=== PATIENT | male | born 1940 | race Caucasian/White ===

== ENCOUNTER 2017-02-01 08:06 | Outpatient (CLI) | payer MEDICARE, BC ==
[~2017-02-01] VITALS: Ht 180.3 cm; Wt 118.2 kg
--- NOTE | ~2017-02-01 | HEMODYNAMI ---
PATIENT:NYLA RODRIGUEZ MEDICAL RECORD: [id number] : 38 LOCATION:[facility] ADMISSION DATE: 02/01/17 Generatedon:02/01/201710:47 Patient name: NYLA RODRIGUEZ Patient #: [id number] SSN: : 1940 Date of study: 02/01/2017 Page: Of Hemodynamic Procedure Report Patient Data Patient Demographics Procedure consent was obtained First Name: NYLA Gender: Male Last Name: MICHAEL : 1940 [facility] Initial: L Age: 76 year(s) Patient #: [id number] Race: Unknown Additional ID: [id number] Contact details [address]: [address] [place] [address] State: [place] City: [place] Zip code: [address] Past Medical History Allergies Allergen Reaction Date Comments Reported Other allergy 02/01/2017 tetanus Admission Admission Data Admission Date: 02/01/2017 Admission Time: 8:06 Procedure Procedure Types Cath Procedure Diagnostic Procedure Cardioversion Procedure Description Procedure Date Procedure Date: 02/01/2017 Procedure Start Time: 10:35 Procedure End Time: 10:41 Procedure Staff Name Function Hebert Perry MD Performing Physician Inocencio Mathias RT Scrub Abdirashid Luna RN Nurse Angel Del Rosario RT Monitor Procedure Data Cath Procedure Fluoroscopy Diagnostic fluoroscopy Total fluoroscopy Time: 0 time: 0 min min Diagnostic fluoroscopy Total fluoroscopy dose: 0 dose: 0 mGy mGy Contrast Material Contrast Material Type Amount (ml) Isovue 300 0 Estimated blood loss: 0 ml Procedure Complications No complications Hemodynamics Rest Heart Rate: 102 (bpm) Snapshots Pre Cath Intra NCS Post Cath Vital Signs Time Heart Resp SPO2 NIBP Rhythm Pain Sedation Rate (ipm) (%) (mmHg) Status Level (bpm) 10:34:14 100 14 100 No Cuff NSR 0 (11) 10(A) , No pain 10:38:30 52 13 96/70(76) NSR 0 (11) 10(A) , No pain 10:42:24 53 14 100 100/63(83) NSR 0 (11) 10(A) , No pain 10:44:25 53 11 99 99/67(76) NSR 0 (11) 10(A) , No pain Procedure Log Time Note 10:12:54 Abdirashid Luna RN sent for patient. Start room use. 10:20:38 Informed consent obtained and on chart 10:20:55 Time tracking: Regular hours 10:20:59 Plan of Care:Hemodynamics will remain stable., Cardiac rhythm will remain stable., Comfort level will be maintained., Respiratory function will remain adequate., Patient/ family verbilizes understanding of procedure., Procedure tolerated without complication., Recovers from procedure without complications.. 10:21:23 H&P Date Dictated: 01/23/2017 Within 30 days and on chart., H&P Addendum completed by physician on day of procedure. (MUST COMPLETE FOR ALL OUTPATIENTS). 10:27:38 Patient received from Pre/Post Procedure Room to CCL 2 Alert and oriented. Tansferred to table in Supine position. 10:27:39 Warm blankets applied, and tor hugger turned on for patient comfort. 10:27:39 Correct patient and procedure confirmed by team. 10:27:40 ECG and BP/O2 sat monitors applied to patient. 10:27:42 Pre-procedure instructions explained to patient. 10:27:42 Pre-op teaching completed and patient verbalized understanding. 10:27:45 Family in waiting room. 10:27:46 Patient NPO since Midnight. 10:33:25 Vital chart was started 10:33:26 Baseline sample Acquired. 10:33:32 Rhythm: atrial fibrillation 10:33:34 Full Disclosure recording started 10:33:53 Patient allergic to Other allergytetanus 10:33:56 Is the patient allergic to Iodine/contrast media? No. 10:34:39 Is patient on blood thinner?Yes 10:34:42 ACC The patient was administered the following blood thiners within the last 24 hours: Xarelto 10:34:45 Previous problem with sedation/anesthesia? No ? 10:34:46 Snore? Yes 10:34:47 Sleep apnea? No 10:34:48 Deviated septum? No 10:34:49 Opens mouth fully? Yes 10:34:49 Sticks out tongue? Yes 10:34:52 Airway obstruction? No ? 10:35:00 Quick Combo opened to sterile field. 10:35:11 Dentures? Yes out 10:35:24 IV patent on arrival in left forearm with 0.9% NaCl at O. 10:35:28 Lab results completed and on chart. 10:35:30 Physician arrived 10:35:31 --------ALL STOP TIME OUT------ 10:35:31 Final Timeout: patient, procedure, and site verified with staff and physician. All members of the team are in agreement. 10:35:36 Physical assessment completed. ASA score P 2 - A patient with mild systemic disease as per Hebert Perry MD. 10:35:40 Sedation plan: TIVA Propofol 10:35:54 DR. Emmanuel present and monitoring patient for TIVA. 10:35:57 Procedure started. 10:35:58 Quick combo pads placed on patients chest and back. 10:37:20 Defibrillator synced and charged to 200 Joules. 10:37:27 Shock delivered. 10:37:41 Patient cardioverted to sinus rhythm . 10:38:31 Procedure ended.(Physican Out) 10:38:39 Fluoroscopy time 00.00 minutes. 10:38:40 Flurop Dose total: 0 10:38:40 Fluoroscopy dose: 0 mGy 10:38:42 Contrast amount:Isovue 300 0ml. 10:38:45 Sharps counted by scrub and verified by R.N. 10:38:52 Post-procedure physical assessment completed. ASA score P 2 - A patient with mild systemic disease as per Hebert Perry MD. 10:38:54 Post procedure rhythm: sinus rhythm 10:38:56 Estimated blood loss: 0 ml 10:38:57 Post procedure instruction explained to patient.Patient verbalizes understanding. 10:39:36 Procedure and supply charges have been captured, reviewed, submitted and are correct. 10:39:38 Procedure Complication : No complications 10:39:40 Vital chart was stopped 10:41:19 See physician's report for complete and final results. 10:41:20 Report given to Pre/Post Procedure Room. 10:41:23 Patient transfered to Pre/Post Procedure Room with Stretcher. 10:41:25 Procedure ended. 10:41:25 Full Disclosure recording stopped 10:47:36 End room use (Document Last) Device Usage Item Manufacture Quantity Catalog Hospital Part Current Minimal Lot# / Name Number Charge Number Stock Herber sabillon# Code [place] [id number] 5 Combo Signature Audit [place] Stage Time Signature Unsigned Intra-Procedure 02/01/2017 Inocencio Mathias 10:47:55 AM RT(R) Signatures Monitor : Angel Del Rosario RT Signature : Date : Time : [place] [id number] [facility] [address]
[~2017-02-01 08:06] MED LIST: ASPIRIN EC81 M1 PO; ASPIRIN325 MG PO; BETAPACE 80 MG80 MG PO; CITRACAL + D E1 EACH PO; FLOMAX0.4 MG PO; HYDROCHLOROTH12.5 M1 PO; HYDROCODONE-APA1 TAB PO; LISINOPRIL10 MG PO; LOPRESSOR25 MG PO; MULTI-DAY VITAM1 TAB PO; POTASSIUM99 M1 PO; PRILOSEC20 MG PO; ZESTORETIC 10/11 TAB PO
[2017-02-01] MEDS ORDERED: LOPRESSOR25 MG PO (08:24)
[2017-02-01] MEDS ORDERED: XARELTO15 MG PO (08:24)
[2017-02-01 08:27] VITALS: BP 122/80; Ht 180.3 cm; Wt 118.2 kg
[2017-02-01 08:42] LABS: BASOPHILS 0.2 % (0-2); EOSINOPHILS 1.2 % (0-7); HEMATOCRIT 41.5 % (42.0-54.0); HEMOGLOBIN 14.2 g/dL (13.5-17.5); IMMATURE GRANULOCYTES 1.2 % (0-5); LYMPHOCYTES 36.9 % (15-50); MCH 30.5 pg (26.0-34.0); MCHC 34.2 g/dL (31.0-37.0); MCV 89.2 fL (80.0-100.0); MEAN PLATELET VOLUME 11.2 fL (7.4-10.4); MONOCYTES 10.2 % (2-11); NEUTROPHILS 50.3 % (40-80); RBC 4.65 10x6/uL (4.20-6.10); RDW 13.7 % (11.5-14.5)
[2017-02-01 08:52] LABS: PLATELET COUNT 128 10x3/uL (130-400)
[2017-02-01 08:53] LABS: CALC OSMOLALITY 280 mosm/kg (275-300); CARBON DIOXIDE 26.4 mmol/L (21.0-32.0); CHLORIDE - SERUM 102 mmol/L (98-107); GLUCOSE 113 mg/dL (74-106); POTASSIUM - SERUM 3.9 mmol/L (3.5-5.1); SODIUM 139 mmol/L (136-145); UREA NITROGEN 18 mg/dL (7-18); eGFR NON AFRICAN AMERICAN 77 mL/min (90-120)
[2017-02-01 09:15] LABS: INR 1.59 (0.85-1.17); PROTIME 18.9 SECONDS (11.6-15.0)
--- NOTE | 2017-02-01 11:22 | NUR ---
1050 RECEIVED PT FROM COMMUNICATIONS ADMINISTRATOR. PT IS DROWSY, DENIES ANY C/O CHEST DISCOMFORT OR NAUSEA. IV PATENT. SINUS CELESTINO ON MONITOR. INSTRUCTED PT TO CALL FOR NEEDS, CALL LIGHT IN REACH. 1105 PT DENIES ANY C/O. PO FLUIDS SERVED. OFFERED SANDWICH AND PT STATES DOES NOT WANT AT THIS TIME. 1110 AT BEDSIDE, PT DENIES ANY C/O AT THIS TIME. NISSA PO FLUIDS WITH NO C/O.
--- NOTE | 2017-02-01 11:44 | NUR ---
1130 PT DENIES ANY C/O CHEST PAIN OR NAUSEA. SINUS BRADYCARDIA AT 54. AT BEDSIDE. NISSA PO FLUIDS, DENIES NEEDS AT THIS TIME.
--- NOTE | 2017-02-01 12:17 | NUR ---
1200 PT DENIES ANY C/O. SINUS BRADYCARDIA, DENIES ANY C/O CHEST PAIN 1215 IV DC'D WITH CATH INTACT, PT DRESSING FOR DC.
--- NOTE | 2017-02-01 12:42 | NUR ---
1230 REVIEWED DC INSTRUCTIONS WITH PT WHO VERBALIZES UNDERSTANDING. PT HAS AMBULATED TO THE BATHROOM AND VOIDED QS. PT ESCORTED TO PRIVATE AUTO VIA WC BY STAFF WITH DRIVING HIM HOME.
== END 2017-02-01 12:30 | disposition home or self-care (01) ==
LOC: D.CATH 08:06
PROVIDERS: Internal Medicine Cardiovascular Disease
DX: I48.91 Unspecified atrial fibrillation (principal); Z01.812 Encounter for preprocedural laboratory examination

== ENCOUNTER 2017-04-05 09:14 | Emergency (ER) | payer MEDICARE, BC ==
[2017-02-01 08:27] VITALS: BMI 36.3
[~2017-04-05 09:14] MED LIST changes: +XARELTO15 MG PO
== END 2017-04-05 11:32 | disposition home or self-care (01) ==
LOC: D.ER 09:14
DX: I10 Essential (primary) hypertension (principal)

== ENCOUNTER 2017-07-04 22:25 | Emergency (ER) | payer MEDICARE, BC ==
[2017-02-01 08:27] VITALS: BMI 36.3
== END 2017-07-05 00:24 | disposition home or self-care (01) ==
LOC: D.ER 22:25
DX: M54.2 Cervicalgia (principal); I10 Essential (primary) hypertension; F17.200 Nicotine dependence, unspecified, uncomplicated

== ENCOUNTER → 2017-08-06 14:19 | Outpatient (CLI) | payer MEDICARE, BC ==
[2017-02-01 08:27] VITALS: BMI 36.3
== END | disposition home or self-care (01) ==
LOC: D.MRI 14:19
DX: M54.2 Cervicalgia (principal)

== ENCOUNTER → 2017-10-19 10:03 | Outpatient (CLI) | payer MEDICARE, BC ==
[2017-02-01 08:27] VITALS: BMI 36.3
== END | disposition home or self-care (01) ==
LOC: D.MRI 10:03
DX: M54.6 Pain in thoracic spine (principal); M54.12 Radiculopathy, cervical region

== ENCOUNTER 2018-07-11 07:02 | Outpatient (CLI) | payer MEDICARE, BC ==
[~2018-07-11] VITALS: Ht 180.3 cm; Wt 118.2 kg
--- NOTE | ~2018-07-11 | HEMODYNAMI ---
PATIENT:NYLA RODRIGUEZ MEDICAL RECORD: [id number] : 38 LOCATION:[facility] ADMISSION DATE: 07/11/18 Generatedon:07/11/201811:02 Patient name: NYLA RODRIGUEZ Patient #: [id number] SSN: : 1940 Date of study: 07/11/2018 Page: Of Hemodynamic Procedure Report Patient Data Patient Demographics Procedure consent was obtained First Name: NYLA Gender: Male Last Name: MICHAEL : 1940 [facility] Initial: L Age: 78 year(s) Patient #: [id number] Race: Unknown Additional ID: [id number] Contact details [address]: [address] [place] [address] State: [place] City: [place] Zip code: [address] Past Medical History Allergies Allergen Reaction Date Comments Reported Other allergy 02/01/2017 tetanus Other allergy 07/11/2018 Tetanus, Toxoid Admission Admission Data Admission Date: 07/11/2018 Admission Time: 7:02 Admit Source: Other Lab Results Lab Result Date: 07/11/2018 Lab Result Time: 8:10 Biochemistry Name Units Result Min Max BUN mg/dl 18 --(---*)-- 7 18 Creatinine mg/dl 0.8 --(-*--)-- 0.6 1.3 CBC Name Units Result Min Max Hematocrit % 38.5 *-(----)-- 42 54 Hemoglobin g/dl 13.3 -*(----)-- 13.5 17.5 Procedure Procedure Types Cath Procedure Peripheral Cath Diagnostic Procedure Dry Lumber Grader Peripheral Procedures Mbown-Nplbimg-Sol-Off Procedure Description Procedure Date Procedure Date: 07/11/2018 Procedure Start Time: 10:52 Procedure End Time: 10:56 Procedure Staff Name Function Hebert Perry MD Performing Physician Patricia Garay RT Monitor Inocencio Mathias RT Scrub Kenny Thomason RN Nurse Procedure Data Cath Procedure Fluoroscopy Diagnostic fluoroscopy Total fluoroscopy Time: 0.6 time: 0.6 min min Diagnostic fluoroscopy Total fluoroscopy dose: 448 dose: 448 mGy mGy Contrast Material Contrast Material Type Amount (ml) Isovue 300 43 Entry Location Entry Primary Successful Side Size Upsize Upsize Entry Closure Succes sful Closure Location (Fr) 1 (Fr) 2 (Fr) Remarks Device Remarks Femoral Right 5 Fr Exoseal artery Estimated blood loss: 5 ml Diagnostic catheters Device Type Used For End Catheter Placement DIAGNOSTIC UF 5Fr Multi-vessel catheter ([id number]) Angiography Procedure Complications No complications Procedure Medications Medication Administration Route Dosage 0.9% NaCl I.V. 100 ml/hr Oxygen etCO2 Nasal cannula 2 l/min Heparin Flush Bag added to field 2 bags (1000units/500ml NS) Lidocaine 2% added to field 20 Versed I.V. 2 mg Fentanyl I.V. 100 mcg Hemodynamics Rest HGB: 13.3 (g/dl) Heart Rate: 49 (bpm) Snapshots Pre Cath Intra NCS Post Cath Vital Signs Time Heart Resp SPO2 etCO2 NIBP Rhythm Pain Sedation Rate (ipm) (%) (mmHg) (mmHg) Status Level (bpm) 10:45:02 49 13 98 11.8 121/72(98) NSR 0 (11) 10(A) , No pain 10:49:06 48 12 98 22.2 115/70(97) NSR 0 (11) 10(A) , No pain 10:53:34 47 13 98 14.8 122/70(95) NSR 0 (11) 10(A) , No pain Medications Time Medication Route Dose Verified Delivered Reason Notes Eff ectiveness by by 10:38:08 0.9% NaCl I.V. 100 Kenny Kenny Per ml/hr Loryaakov Thomason physician RN RN 10:38:17 Oxygen etCO2 2 Kenny Kenny Per Nasal l/min Loryaakov Sheltonigan physician cannula RN RN 10:38:29 Heparin Flush added 2 Kenny Kenny used for Bag to bags Lorigan Lorigan procedure (1000units/500ml field RN RN NS) 10:38:39 Lidocaine 2% added 20ml Kenny Kenny for local to vial Lorigan Lorigan anesthetic field RN RN 10:50:53 Versed I.V. 2 mg Kenny Kenny for Lorigan Lorigan sedation RN RN 10:51:02 Fentanyl I.V. 100 Kenny Kenny for mcg Lorigan Lorigan sedation RN janitorial cleaner Log Time Note 9:51:46 Informed consent obtained and on chart 9:51:48 Admit Source: Other 9:52:01 Diagnostic Cath status Elective 9:52:02 Time tracking: Regular hours (M-F 7:00 - 5:00) 9:52:05 Plan of Care:Hemodynamics will remain stable., Cardiac rhythm will remain stable., Comfort level will be maintained., Respiratory function will remain adequate., Patient/ family verbilizes understanding of procedure., Procedure tolerated without complication., Recovers from procedure without complications.. 9:54:35 H&P Date Dictated: 05/29/2018 Within 30 days and on chart., H&P Addendum completed by physician on day of procedure. (MUST COMPLETE FOR ALL OUTPATIENTS). 9:57:56 Lab Result : BUN 18 mg/dl 9:57:57 Lab Result : Creatinine 0.8 mg/dl 9:57:57 Lab Result : Hemoglobin 13.3 g/dl 9:57:57 Lab Result : Hematocrit 38.5 % 9:57:58 Lab results completed and on chart. 10:20:05 Patricia Garay RT(R) sent for patient. Start room use. 10:26:22 Patient received from Pre/Post Procedure Room to CCL 2 Alert and oriented. Tansferred to table in Supine position. 10:26:23 Warm blankets applied, and tor hugger turned on for patient comfort. 10:26:23 Correct patient and procedure confirmed by team. 10:26:25 ECG and BP/O2 sat monitors applied to patient. 10:26:26 Pre-procedure instructions explained to patient. 10:26:27 Pre-op teaching completed and patient verbalized understanding. 10:26:28 Family in waiting room. 10:26:29 Patient NPO since Midnight. 10:26:50 Patient allergic to Other allergyTetanus, Toxoid 10:38:08 0.9% NaCl 100 ml/hr I.V. was administered by Kenny Thomason RN; Per physician; 10:38:17 Oxygen 2 l/min etCO2 Nasal cannula was administered by Kenny Thomason RN; Per physician; 10:38:29 Heparin Flush Bag (1000units/500ml NS) 2 bags added to field was administered by Kenny Thomason RN; used for procedure; 10:38:39 Lidocaine 2% 20ml vial added to field was administered by Kenny Thomason RN; for local anesthetic; 10:39:07 Is the patient allergic to Iodine/contrast media? No. 10:39:08 Was the patient premedicated? No 10:39:09 Is patient on blood thinner?No 10:39:10 Patient diabetic? No. 10:39:14 Previous problem with sedation/anesthesia? Yes nausea 10:39:16 Snore? No 10:39:23 Sleep apnea? No 10:39:24 Deviated septum? No 10:39:28 Opens mouth fully? Yes 10:39:29 Sticks out tongue? Yes 10:39:31 Airway obstruction? No ? 10:39:42 Dentures? Yes upper plate out 10:39:46 Pre procedure: right dorsailis pedis pulse 2+ Normal; easily identifiable; not easily obliterated 10:39:48 Pre procedure: left dorsailis pedis pulse 2+ Normal; easily identifiable; not easily obliterated 10:39:51 Patient pain scale 0/10 ?. 10:39:56 IV patent on arrival in left forearm with 0.9% NaCl at [facility]. 10:40:02 Bilateral groins area was prepped with chlora-prep and draped in sterile fashion 10:40:02 Alarms reviewed by R. N. 10:40:03 Sharps counted by scrub and verified by R.N. 10:43:53 Vital chart was started 10:43:54 Baseline sample Acquired. 10:43:59 Rhythm: sinus rhythm 10:46:10 Zero performed for pressure channel P1 10:46:15 Zero performed for pressure channel P1 10:46:21 Zero performed for pressure channel P1 10:46:29 Zero performed for pressure channel P1 10:48:20 Physician arrived 10:48:20 --------ALL STOP TIME OUT------ 10:48:20 Final Timeout: patient, procedure, and site verified with staff and physician. All members of the team are in agreement. 10:48:23 Bilateral groins site verified by team. 10:48:26 Physical assessment completed. ASA score P 2 - A patient with mild systemic disease as per Hebert Perry MD. 10:48:31 Sedation plan: IV Moderate Sedation Medication:Versed, Fentanyl 10:48:39 Use device set CATH PACK 10:48:42 ACIST Syringe (55035) opened to sterile field. 10:48:47 ACIST Hand Control (34834) opened to sterile field. 10:48:47 Medline Cath Pack ([id number]) opened to sterile field. 10:48:49 ACIST Manifold (32966) opened to sterile field. 10:48:52 Bag Decanter (2002) opened to sterile field. 10:48:52 DIAGNOSTIC WIRE .035 260cm J wire ([id number]) opened to sterile field. 10:50:53 Versed 2 mg I.V. was administered by Kenny Thomason RN; for sedation; 10:51:02 Fentanyl 100 mcg I.V. was administered by Kenny Thomason RN; for sedation; 10:51:04 Procedure started. 10:51:04 Full Disclosure recording started 10:51:19 A 5 Fr sheath was inserted into the Right Femoral artery 10:52:39 Local anesthetic to right femoral artery with Lidocaine 2% by Hebert Perry MD.INITIAL ACCESS ONLY 10:53:11 A DIAGNOSTIC UF 5Fr catheter ([id number]) was advanced over the wire and used for Multi-vessel Angiography. 10:53:53 Abdominal angiogram w/ runoff was performed. 10:55:20 Catheter removed. 10:55:29 EXOSEAL 5Fr (EX500) opened to sterile field. 10:55:39 Sheath removed intact; hemostasis achieved with Exoseal to the Right Femoral artery. 10:55:40 Procedure ended.(Physican Out) 10:55:50 Fluoroscopy time 00.60 minutes. 10:55:54 Fluoroscopy dose: 448 mGy 10:55:54 Flurop Dose total: 448 10:55:57 Contrast amount:Isovue 300 43ml. 10:55:59 Sharps counted by scrub and verified by R.N. 10:56:00 Insertion/operative site no bleeding no hematoma. 10:56:02 Post-op/insertion site Right Femoral artery dressed using a 4 x 4 and Tegaderm. 10:56:05 Post right femoral artery:stable 10:56:06 Post Procedure Pulses reassessed and unchanged 10:56:09 Post procedure rhythm: unchanged. 10:56:11 Estimated blood loss: 5 ml 10:56:13 Post procedure instruction explained to patient.Patient verbalizes understanding. 10:56:13 Patient needs reinforcement of post procedure teaching. 10:56:22 Procedure and supply charges have been captured, reviewed, submitted and are correct. 10:56:26 Procedure Complication : No complications 10:56:28 Vital chart was stopped 10:56:29 See physician's report for complete and final results. 10:56:30 Report given to Pre/Post Procedure Room. 10:56:33 Patient transfered to Pre/Post Procedure Room with Stretcher. 10:56:35 Procedure ended. 10:56:35 Full Disclosure recording stopped 10:56:45 End room use (Document Last) Device Usage Item Name Manufacture Quantity Catalog Hospital Part Current Minimal L ot# / Number Charge Number Stock Stock Serial# Code ACIST Acist 1 28354 [id number] 755252 015287 20 Syringe Medical (68217) Systems Inc ACIST Hand Acist 1 50341 215268 365738 174945 5 Control Medical (57336) Systems Inc Medline Medline 1 [id number] 635561 57997 579448 5 Cath Pack ([id number]) ACIST Acist 1 03822 983465 529619 563436 5 Manifold Medical (82683) Systems Inc Bag Microtek 1 2002S 705817 26770 087028 5 Decanter Medical Inc. (2001S) DIAGNOSTIC St Magen 1 578789 798919 593472 846414 30 WIRE .035 260cm J wire (895554) DIAGNOSTIC Cardinal 1 [id number] 340538 644730 490151 10 UF 5Fr Health catheter ([id number]) EXOSEAL 5Fr Cardinal 1 EX500 152727 503981 260430 10 (EX500) Health Signature Audit [place] Stage Time Signature Unsigned Intra-Procedure 07/11/2018 Patricia Garay 11:01:58 AM RT(R) Signatures Monitor : Patricia Garay RT Signature : Date : Time : [facility] [address] [place] [address]
[2018-07-11 08:10] VITALS: BP 149/67; Ht 180.3 cm; Wt 118.2 kg
[2018-07-11 08:21] LABS: BASOPHILS 0 % (0-2); EOSINOPHILS 1.3 % (0-7); HEMATOCRIT 38.5 % (42.0-54.0); HEMOGLOBIN 13.3 g/dL (13.5-17.5); IMMATURE GRANULOCYTES 1.3 % (0-5); LYMPHOCYTES 28.5 % (15-50); MCH 30.6 pg (26.0-34.0); MCHC 34.5 g/dL (31.0-37.0); MCV 88.7 fL (80.0-100.0); MEAN PLATELET VOLUME 11.2 fL (7.4-10.4); MONOCYTES 13.5 % (2-11); NEUTROPHILS 55.4 % (40-80); PLATELET COUNT 124 10x3/uL (130-400); RBC 4.34 10x6/uL (4.20-6.10); RDW 14.2 % (11.5-14.5); WBC 6.2 10x3/uL (4.8-10.8)
[2018-07-11 08:27] LABS: CALC OSMOLALITY 275 mosm/kg (275-300); CALCIUM 9.1 mg/dL (8.5-10.1); CARBON DIOXIDE 27.4 mmol/L (21.0-32.0); CHLORIDE - SERUM 100 mmol/L (98-107); CREATININE - SERUM 0.8 mg/dL (0.6-1.3); GLUCOSE 107 mg/dL (74-106); POTASSIUM - SERUM 3.8 mmol/L (3.5-5.1); SODIUM 137 mmol/L (136-145); UREA NITROGEN 18 mg/dL (7-18); eGFR NON AFRICAN AMERICAN > 90 mL/min (90-120)
--- NOTE | 2018-07-11 11:25 | NUR ---
RIGHT GROIN 5F EXOSEAL CDI, NO BLEEDING OR HEMATOMA NOTED. 2L NC WITH NO RESP DISTRESS. NO C/O PAIN OR NAUSEA. VSS. AT BEDSIDE, CALL LIGHT WITHIN REACH.
--- NOTE | 2018-07-11 11:55 | NUR ---
RESTING QUIETLY WITH EYES CLOSED. RIGHT GROIN 5F EXOSEAL CDI, NO BLEEDING OR HEMATOMA NOTED. DENIES ANY C/O AT THIS TIME. VSS. WILL CONTINUE TO MONITOR.
--- NOTE | 2018-07-11 12:19 | NUR ---
HOB ELEVATED 30 DEGREES. RIGHT GROIN 5F EXOSEAL CDI, NO BLEEDING OR HEMATOMA NOTED. SIPPING ON DRINK AND EATING SANDWICH WITH NO C/O NAUSEA. VSS. WILL CONTINUE TO MONITOR CLOSELY.
--- NOTE | 2018-07-11 12:50 | NUR ---
LEFT PIV D/C'D WITH CATHETER INTACT, BAND AID TO SITE. UP TO BEDSIDE TO GET DRESSED. AMBULATED TO RESTROOM.
--- NOTE | 2018-07-11 13:00 | NUR ---
DISCHARGE INSTRUCTIONS GIVEN, VERBALIZED UNDERSTANDING.
--- NOTE | 2018-07-11 13:15 | NUR ---
TAKEN OUT VIA WHEELCHAIR BY CATH PAPER RECLAIMING MACHINE OPERATOR. LEFT FACILITY WITH FAMILY AND ALL PERSONAL BELONGINGS.
== END 2018-07-11 13:15 | disposition home or self-care (01) ==
LOC: D.CATH 07:02
PROVIDERS: Internal Medicine Cardiovascular Disease
DX: M79.605 Pain in left leg (principal); M79.604 Pain in right leg; I73.9 Peripheral vascular disease, unspecified; I10 Essential (primary) hypertension; I48.0 Paroxysmal atrial fibrillation

== ENCOUNTER 2018-12-15 18:14 | Emergency (ER) | payer MEDICARE, BC ==
[2018-12-15 18:29] VITALS: BMI 32.8
[2018-12-15 19:22] LABS: HEMATOCRIT 32.6 % (42.0-54.0); HEMOGLOBIN 11.2 g/dL (13.5-17.5); MCH 29.2 pg (26.0-34.0); MCHC 34.4 g/dL (31.0-37.0); MCV 85.1 fL (80.0-100.0); MEAN PLATELET VOLUME 10.7 fL (7.4-10.4); PLATELET COUNT 214 10x3/uL (130-400); RBC 3.83 10x6/uL (4.20-6.10); RDW 13.8 % (11.5-14.5); WBC 6.8 10x3/uL (4.8-10.8)
[2018-12-15 19:44] LABS: ALBUMIN 3.3 g/dL (3.4-5.0); ALKALINE PHOSPHATASE 75 U/L (46-116); ALT (SGPT) 44 U/L (10-68); BILIRUBIN - TOTAL 0.41 mg/dL (0.2-1.3); CALC OSMOLALITY 264 mosm/kg (275-300); CALCIUM 9.1 mg/dL (8.5-10.1); CARBON DIOXIDE 28.2 mmol/L (21.0-32.0); CHLORIDE - SERUM 93 mmol/L (98-107); CREATININE - SERUM 0.7 mg/dL (0.6-1.3); EOSINOPHILS 3 % (0-7); GLUCOSE 110 mg/dL (74-106); LYMPHOCYTES 28 % (15-50); MONOCYTES 12 % (2-11); NEUTROPHILS 57 % (40-80); PLATELET ESTIMATE NORMAL; POTASSIUM - SERUM 3.4 mmol/L (3.5-5.1); PROTEIN - SERUM 7.4 g/dL (6.4-8.2); ROULEAUX OCC; SODIUM 130 mmol/L (136-145); TEAR DROP CELLS OCC; UREA NITROGEN 20 mg/dL (7-18); eGFR NON AFRICAN AMERICAN > 90 mL/min (90-120)
[2018-12-15 20:48] LABS: APPEARANCE CLEAR (CLEAR); BILIRUBIN NEGATIVE (NEGATIVE); COLOR YELLOW (YELLOW); GLUCOSE NEGATIVE (NEGATIVE); KETONE NEGATIVE (NEGATIVE); NITRITE NEGATIVE (NEGATIVE); PROTEIN NEGATIVE (NEGATIVE); SPECIFIC GRAVITY 1.025 (1.005-1.020); UROBILINOGEN NORMAL (NORMAL)
[2018-12-15 21:25] VITALS: BP 121/67
== END 2018-12-15 21:25 | disposition home or self-care (01) ==
LOC: D.ER 18:14
PROVIDERS: Family Medicine
DX: M54.5 Low back pain (principal)

== ENCOUNTER 2019-01-07 20:13 | Emergency (ER) | payer MEDICARE, BC ==
[~2019-01-07] VITALS: Ht 180.3 cm; Wt 113.6 kg
[2019-01-07 20:20] VITALS: Ht 180.3 cm; Wt 113.6 kg
[2019-01-07 22:59] VITALS: BP 140/78
== END 2019-01-07 22:57 | disposition home or self-care (01) ==
LOC: D.ER 20:13
DX: S01.01XA Laceration without foreign body of scalp, initial encounter (principal); W19.XXXA Unspecified fall, initial encounter

== ENCOUNTER → 2019-07-21 11:09 | Outpatient (CLI) | payer MEDICARE, BC ==
[2019-01-07 20:20] VITALS: BMI 34.9
== END | disposition home or self-care (01) ==
LOC: D.HCCECHO 11:09
PROVIDERS: ATTEND Internal Medicine Cardiovascular Disease
DX: I10 Essential (primary) hypertension (principal)

== ENCOUNTER 2019-09-11 11:00 | Outpatient (CLI) | payer MEDICARE, BC ==
[~2019-09-11] VITALS: Ht 180.3 cm; Wt 108.2 kg
--- NOTE | ~2019-09-11 | HEMODYNAMI ---
PATIENT:NYLA RODRIGUEZ MEDICAL RECORD: [id number] : 38 LOCATION:[facility] ADMISSION DATE: 09/11/19 Generatedon:09/11/201913:38 Patient name: NYLA RODRIGUEZ Patient #: [id number] SSN: : 1940 Date of study: 09/11/2019 Page: Of Hemodynamic Procedure Report Patient Data Patient Demographics Procedure consent was obtained First Name: NYLA Gender: Male Last Name: MICHAEL : 1940 [facility] Initial: L Age: 79 year(s) Patient #: [id number] Race: Unknown Additional ID: [id number] Contact details Address: [address] [place] [address] State: [place] City: [place] Zip code: [address] Past Medical History Allergies Allergen Reaction Date Comments Reported Other allergy 02/01/2017 tetanus Other allergy 07/11/2018 Tetanus, Toxoid Other allergy 09/11/2019 TETANUS TOXOID, XARELTO Admission Admission Data Admission Date: 09/11/2019 Admission Time: 11:00 Arrival Date: 09/11/2019 Arrival Time: 0:00 Height (in.): 70.87 BSA: 2.25 (m2) Height (cm.): 180 BMI: 32.62 (kg/m2) Weight (lbs.): 233 Weight (kg.): 105.69 Lab Results Lab Result Date: 09/11/2019 Lab Result Time: 0:00 Biochemistry Name Units Result Min Max BUN mg/dl 16 --(---*)-- 7 18 Creatinine mg/dl 0.8 --(-*--)-- 0.6 1.3 eGFR ml/min 90 --(*---)-- 90 120 NONAFRICAN CBC Name Units Result Min Max Hematocrit % 41.4 -*(----)-- 42 54 Hemoglobin g/dl 14 --(*---)-- 13.5 17.5 Procedure Procedure Types Cath Procedure Diagnostic Procedure Cardioversion External TAMARA Procedure Description Procedure Date Procedure Date: 09/11/2019 Procedure Start Time: 13:16 Procedure End Time: 13:36 Procedure Staff Name Function Navin Laurent MD Performing Physician Airam Thapa RT Monitor Latesha Bergman RN Nurse Esperanza Chi Spraying Machine Operator El Mendez CRNA Additional personnel Procedure Data Cath Procedure Fluoroscopy Diagnostic fluoroscopy Total fluoroscopy Time: 0 time: 0 min min Diagnostic fluoroscopy Total fluoroscopy dose: 0 dose: 0 mGy mGy Estimated blood loss: 0 ml Procedure Complications No complications Procedure Medications Medication Administration Route Dosage 0.9% NaCl I.V. 100 ml/hr Oxygen etCO2 Nasal cannula 3 l/min Refer to Anesthesia Notes for Sedation Medications Hurricaine Whittier P.O. 2 Sprays Hemodynamics Rest BSA: 2.25 (m2) O2 Consumption: Estimated: 306 (ml/min) O2 Consumption indexed: Estimated:136 (ml/min/m) Pre Cath Intra NCS Post Cath Vital Signs Time Heart Resp SPO2 etCO2 NIBP (mmHg) Rhythm Pain Sedation Rate (ipm) (%) (mmHg) Status Level (bpm) 13:15:01 104 19 96 27 Measuring A-Fib 0 (11) 10(A) , No pain 13:15:34 77 20 96 15 149/119(129) A-Fib 0 (11) 10(A) , No pain 13:20:33 102 18 97 8.3 143/107(116) A-Fib 0 (11) 10(A) , No pain 13:25:16 120 21 97 28.7 95/55(84) A-Fib 0 (11) 9(A) , No pain 13:29:51 60 16 99 31 117/105(108) NSR 0 (11) 9(A) , No pain 13:32:44 61 16 97 30.2 91/61(76) NSR 0 (11) 9(A) , No pain Medications Time Medication Route Dose Verified Delivered Reason Notes Effecti veness by by 13:18:23 0.9% NaCl I.V. 100 Navin Charlton used for ml/hr [facility] procedure MD DE LA ROSA 13:18:34 Oxygen etCO2 3 Navin Charlton used for Nasal l/min [facility] procedure cannula MD DE LA ROSA 13:18:44 Refer to Navin Gallegos for Anesthesia [facility] sedation Notes for MD GUAN Sedation Medications 13:18:59 Hurricaine P[address] Navin Gallegos for local Whittier Sprays [facility] anesthetic MD GUAN Procedure Log Time Note 12:59:23 Informed consent obtained and on chart 13:00:35 Procedure Status Cardioversion, TAMARA. 13:00:37 Time tracking: Regular hours (M-F 7:00 - 5:00) 13:00:42 Plan of Care:Hemodynamics will remain stable., Cardiac rhythm will remain stable., Comfort level will be maintained., Respiratory function will remain adequate., Patient/ family verbilizes understanding of procedure., Procedure tolerated without complication., Recovers from procedure without complications.. 13:00:44 Latesha Bergman RN sent for patient. Start room use. 13:03:29 Lab Result : BUN 16 mg/dl 13::29 Lab Result : Creatinine 0.8 mg/dl 13::29 Lab Result : eGFR NONAFRICAN 90 ml/min 13:03:29 Lab Result : Hemoglobin 14 g/dl 13:03:29 Lab Result : Hematocrit 41.4 % 13:06:08 H&P Date Dictated: 09/08/2019 Within 30 days and on chart., H&P Addendum completed by physician on day of procedure. (MUST COMPLETE FOR ALL OUTPATIENTS). 13:06:22 Patient Weight : 233 lbs 13:06:27 Patient Height : 70.87 inches 13:06:31 Arrival Date: 09/11/2019 12:00:00 AM 13:09:03 El Mendez CRNA present and monitoring patient for TIVA. 13:10:41 Patient arrived from Pre/Post Procedure Room to [facility] 3. Patient remains on bed/stretcher for procedure. 13:10:41 Warm blankets applied, and tor hugger turned on for patient comfort. 13:10:42 Correct patient and procedure confirmed by team. 13:10:42 ECG and BP/O2 sat monitors applied to patient. 13:13:11 Vital chart was started 13:13:15 Rhythm: sinus rhythm 13:13:16 Full Disclosure recording started 13:13:17 Pre-procedure instructions explained to patient. 13:13:17 Pre-op teaching completed and patient verbalized understanding. 13:13:19 Family in patients room. 13:13:20 Patient NPO since Midnight. 13:13:37 Patient allergic to Other allergyTETANUS TOXOID, XARELTO 13:13:39 Is the patient allergic to Iodine/contrast media? No. 13:13:41 Is patient on blood thinner?No 13:13:42 Patient diabetic? No. 13:13:44 Previous problem with sedation/anesthesia? No ? 13:13:45 Snore? Yes 13:13:46 Sleep apnea? No 13:13:47 Deviated septum? No 13:13:47 Opens mouth fully? Yes 13:13:49 Sticks out tongue? Yes 13:13:51 Airway obstruction? No ? 13:13:53 Dentures? No ? 13:14:02 IV patent on arrival in left antecubital with 0.9% NaCl at [facility]. 13:14:09 Lab results completed and on chart. 13:14:14 Alarms reviewed by Dustin Reich 13:15:36 --------ALL STOP TIME OUT------ 13:15:37 Final Timeout: patient, procedure, and site verified with staff and physician. All members of the team are in agreement. 13:15:41 Physical assessment completed. ASA score P 3 - A patient with severe systemic disease as per Navin Laurent MD. 13:15:45 Sedation plan: TIVA Medication:Propofol 13:16:38 Procedure started. 13:16:42 TAMARA 13:16:53 Esperanza [employer] Automobile Repossessor present for TAMARA. 13:18:04 TAMARA started. 13:18:23 0.9% NaCl 100 ml/hr I.V. was administered by Latesha Bergman RN; used for procedure; Verbal order read back and verified. 13:18:34 Oxygen 3 l/min etCO2 Nasal cannula was administered by Latesha Bergman RN; used for procedure; Verbal order read back and verified. 13:18:44 Refer to Anesthesia Notes for Sedation Medications was administered by El Mendez CRNA; for sedation; Verbal order read back and verified. 13:18:59 Hurricaine Whittier 2 Sprays P.O. was administered by El Mendez CRNA; for local anesthetic; Verbal order read back and verified. 13:20:30 Quick Combo opened to sterile field. 13:24:17 TAMARA completed. 13:24:37 ------Cardioversion------ 13:25:24 Quick combo pads placed on patients chest and back. 13:25:26 Defibrillator synced and charged to 200 Joules. 13:25:31 Shock delivered. 13:26:04 Defibrillator synced and charged to 360 Joules. 13:26:08 Shock delivered. 13:26:41 Patient cardioverted to sinus rhythm . 13:26:47 Procedure ended.(Physican Out) 13:32:15 WHEN PADS REMOVED AFTER CARDIOVERSION. PATIENT HAS SKIN IRRITATION 13:34:04 Fluoroscopy time 00.00 minutes. 13:34:06 Fluoroscopy dose: 0 mGy 13:34:06 Flurop Dose total: 0 13:34:24 Post-procedure physical assessment completed. ASA score P 3 - A patient with severe systemic disease as per Navin Laurent MD. 13:34:30 Post procedure rhythm: sinus rhythm 13:34:32 Estimated blood loss: 0 ml 13:34:33 Post procedure instruction explained to patient.Patient verbalizes understanding. 13:34:34 Patient needs reinforcement of post procedure teaching. 13:35:06 Procedure and supply charges have been captured, reviewed, submitted and are correct. 13:35:09 Procedure Complication : No complications 13:35:15 TAMARA Findings: other (see operative note) 13:35:19 Operative report dictated upon procedure completion. 13:35:19 See physician's report for complete and final results. 13:35:44 Report given to Pre/Post Procedure Room. 13:35:46 Patient transfered to Pre/Post Procedure Room with Bed. 13:35:59 Vital chart was stopped 13:36:01 Procedure ended. 13:36:01 Full Disclosure recording stopped 13:36:05 End room use (Document Last) 13:37:05 End room use (Document Last) 13:37:56 End room use (Document Last) Device Usage Item Manufacture Quantity Catalog Hospital Part Current Minimal Lot# / Name Number Charge Number Stock Stock Alexis sabillon# Code [employer] 1 [id number] 5 Combo Signature Audit Franklin Stage Time Signature Unsigned Intra-Procedure 09/11/2019 Airam Thapa 1:37:05 PM RT(R) Intra-Procedure 09/11/2019 Latesha Bergman 1:37:56 PM RN Intra-Procedure 09/11/2019 Navin Hogue 1:38:55 PM Vincent GALEAS [facility] [address] [place] [address]
[2019-09-11] MEDS ORDERED: LASIX20 MG PO (11:25)
[2019-09-11] MEDS ORDERED: MULTI-DAY VITAM1 TAB PO (11:26)
[2019-09-11] MEDS ORDERED: POTASSIUM CHLO10 ME1 PO (11:26)
[2019-09-11] MEDS ORDERED: FUROSEMIDE40 MG PO (11:27)
[2019-09-11 11:45] VITALS: BP 130/87; Ht 180.3 cm; Wt 108.2 kg
[2019-09-11 12:10] LABS: BASOPHILS 0.2 % (0-2); EOSINOPHILS 1.9 % (0-7); HEMATOCRIT 41.4 % (42.0-54.0); IMMATURE GRANULOCYTES 1.3 % (0-5); LYMPHOCYTES 32.4 % (15-50); MCH 30.3 pg (26.0-34.0); MCHC 33.8 g/dL (31.0-37.0); MCV 89.6 fL (80.0-100.0); MEAN PLATELET VOLUME 10.7 fL (7.4-10.4); MONOCYTES 13.8 % (2-11); NEUTROPHILS 50.4 % (40-80); PLATELET COUNT 186 10x3/uL (130-400); RBC 4.62 10x6/uL (4.20-6.10); RDW 14.8 % (11.5-14.5); WBC 6.3 10x3/uL (4.8-10.8)
[2019-09-11 12:17] LABS: INR 1.08 (0.85-1.17)
[2019-09-11 12:33] LABS: CALC OSMOLALITY 276 mosm/kg (275-300); CALCIUM 9.7 mg/dL (8.5-10.1); CARBON DIOXIDE 27.9 mmol/L (21.0-32.0); CHLORIDE - SERUM 101 mmol/L (98-107); CREATININE - SERUM 0.8 mg/dL (0.6-1.3); GLUCOSE 102 mg/dL (74-106); SODIUM 138 mmol/L (136-145); UREA NITROGEN 16 mg/dL (7-18); eGFR NON AFRICAN AMERICAN > 90 mL/min (90-120)
--- NOTE | 2019-09-11 13:53 | NUR ---
REC TO ROOM FROM MD UROLOGIST VIA STRETCHER. MONITORING INITIATED. NOTED TO HAVE 2ND DEGREE BURN IN OUTLINE OF DEFIB PAD TO MIDSTERNAL AREA. EXPL NEED FOR NPO X 1 HOUR POST PROCEDURE 2* TAMARA AND THROAT ANALGESIA. PT AND FAMILY VERBALIZE UNDERSTANDING. ALOE VESTA 3 SPRAY APPLIED TO BURN RENATE. HR SR 62, BP 86/59, SAT 94% ON 2LNC, DENIES NEEDS.FAMILY AT BEDSIDE. DR FAJARDO PRECEDED PT TO ROOM AND SPOKE W FAMILY RE OUTCOME OF PROCEDURE AND FOLLOWUP.
--- NOTE | 2019-09-11 14:30 | NUR ---
REPOSITIONED UP IN BED W ASSIST OF ANOTHER NURSE. HOB RAISED UP FOR PT COMFORT. ORANGE JUICE PROVIDED. PT INSTRUCTED TO TAKE SMALL SIP AND TUCK CHIN FOR SWALLOW. SWALLOWING WITHOUT DIFFICULTY. ICECREAM PROVIDED. FAMILY REMAINS AT BEDSIDE. BP 107/68, NSR 60, SAT 95% 2LNC.
--- NOTE | 2019-09-11 14:45 | NUR ---
NISSA ICE CREAM AND OJ, AWAKE, NO COMPLAINTS. IV DC TIP INTACT, MONITORING DC. DRESSING NOW WITH SON'S ASSISTANCE.
--- NOTE | 2019-09-11 15:15 | NUR ---
DISCHARGE INSTRUCTIONS REVIEWED W PT AND SON. VERBALIZED UNDERSTANDING. PT HAS ALL BELONGINGS. DC HOME VIA WHEELCHAIR TO PRIVATE CAR W SON AND .
--- NOTE | 2019-09-13 11:36 | OP ---
PATIENT NAME: NYLA RODRIGUEZ MEDICAL RECORD: [id number] :38 LOCATION:D.[facility] ADMISSION DATE: SURGEON: ESTELITA FAJARDO MD DATE OF OPERATION: 09/11/2019 PROCEDURE: Cardioversion. SUMMARY OF PROCEDURE: After general sedation via TIVA via anesthesia, initial shock at 200 joules was unsuccessful in restoring atrial fibrillation to normal sinus rhythm. Secondary shock at 360 joules restored atrial fibrillation promptly to normal sinus rhythm. IMPRESSION: Successful cardioversion. COMPLICATIONS: None. ESTIMATED BLOOD LOSS: Minimal. DISPOSITION: To floor, stable. TRANSINT:[id number] Voice Confirmation ID: [id number] DOCUMENT ID: [id number] ESTELITA FAJARDO MD at 1136 CC: [id number] DICTATION DATE: 09/11/19 1332 J2EE SOFTWARE ENGINEER: 09/11/19 2221 DEP CLI 09/11/19 [place] [address] [place] [address]
--- NOTE | 2019-09-13 11:36 | TEE ---
PATIENT:NYLA RODRIGUEZ MEDICAL RECORD: [id number] LOCATION:D.[facility] AGE OF PATIENT: 79 ADMISSION DATE: 09/11/19 SEX: M REFERRING PHYSICIAN: INTERPRETING PHYSICIAN: ESTELITA FAJARDO MD TRANSESOPHAGEAL ECHOCARDIOGRAM Date: 09/11/19 TAMARA CHARGE Y INDICATIONS: A-FIB - PRE CARDIOVERSION R/O LA APPENDAGE CLOT PREMEDICATIONS: PATIENT'S RESPONSE PROCEDURE DOPPLER MEASUREMENTS: LVIT LA PA RA LVOT RVOT Asc. Ao AV Gradient Peak AV Mean AV Area MV Gradient Peak MV Mean MV Area INTERPRETATION: Doppler: 2-D: COLOR FLOW DOPPLER NORMAL SALINE STUDY: MISCELLANOUS: DIAGNOSIS: PLAN: Cigar Sorter:3 Dr. Duncan Ceramics Teacher: 1 EDOUARD BLACKWELL COMMENTS: DATE OF SERVICE: PROCEDURE: Transesophageal Note DESCRIPTION OF THE PROCEDURE: After general sedation via TIVA anesthesia, transesophageal Omniplane probe was placed in the distal esophagus and proximal stomach without difficulty. LV internal dimensions are normal. Wall motion is normal. EF 25%. Aortic TRANSESOPHAGEAL ECHOCARDIOGRAM REPORT [id number] NYLA RODRIGUEZ valve is trileaflet with good valve excursion. No significant AI. Left atrium appears of normal dimensions. Left atrial appendage is well visualized with good fibrillatory waves on Doppler interrogation. Upon appendage, mitral valve appears normal with mild MR. RV internal dimensions are normal. Right atrium is dilated. There is moderate TR. 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 At the end of procedure, transesophageal Omniplane probe was turned posteriorly and this shows minimal atherosclerotic debris in the descending aorta. TRANSINT:[id number] Voice Confirmation ID: [id number] DOCUMENT ID: [id number] at 1136 CC: [id number] DICTATION DATE: 09/11/19 1331 AIRBRUSH PAINTER: 09/11/19 2249 DEP CLI 09/11/19 [place] [id number]
== END 2019-09-11 15:15 | disposition home or self-care (01) ==
LOC: D.CATH 11:00
PROVIDERS: ATTEND Internal Medicine Interventional Cardiology
DX: I48.91 Unspecified atrial fibrillation (principal); I10 Essential (primary) hypertension

== ENCOUNTER 2020-01-05 08:52 | Inpatient (IN) | payer MEDICARE, BC ==
[~2020-01-05] VITALS: Ht 180.3 cm; Wt 108.5 kg
[2020-01-05] VITALS (11 sets, daily range): BP systolic 102–156; BP diastolic 67–112; BMI 33.4
--- NOTE | ~2020-01-05 | EC ---
PATIENT:NYLA RODRIGUEZ DATE OF SERVICE: 01/06/20 SEX: M MEDICAL RECORD: [id number] DATE OF : 38 LOCATION:[place] [address] AGE OF PATIENT: 79 ADMISSION DATE: 01/06/20 REFERRING PHYSICIAN: INTERPRETING PHYSICIAN: ALVIN RASCON MD ECHOCARDIOGRAM REPORT ECHO CHARGES 4 ECHO COMPLETE Date: 01/06/20 CLINICAL DIAGNOSIS: CHF, PAF ECHOCARDIOGRAPHIC MEASUREMENTS (adult normal given) AC root (d.<3.7cm) 3.0 cm LV Septum d (<1.2 cm> 1.0 cm Valve Excursion 1.9 cm LV Septum (systole) 1.4 cm Left Atria (s.<4.0cm> 4.4 cm LVPW d(<1.2cm) 1.0 cm RV (d.<2.3cm) 2.7 cm LVPW (sytole) 1.4 cm LV diastole(<5.6CM) 5.4 cm MV E-F(>70mm/sec) cm LV systole 3.9 cm LVOT Diameter 1.8 cm MV exc.(>10mm) cm Est.ejection fraction (50-75%) % DOPPLER: LVIT cm/sec A 84 cm/sec E 52 cm/sec LA cm/sec RVSP 35.7 mmHg LVOT 95 cm/sec AOP1/2T m/s Asc. Ao 231 cm/sec RVOT 67 cm/sec RA cm/sec PA 68 cm/sec AV Gradient Peak 21.4 mmHg AV Mean 12.5 mmHg AV Area 0.9 cm MV Gradient Peak 4.2 mmHg MV Mean 2.0 mmHg MV Area cm COMMENTS: Manager Clinical: Guillermo HORVATH Radiology Supervisor: Fredis Rascon TAPE# PACS Pericardial Effusion N DATE OF SERVICE: 01/06/2020 PROCEDURE: Transthoracic echocardiogram. FINDINGS: 1. Left ventricle is normal size, shape, structure, and function. No regional wall motion abnormalities. The patient has diastolic dysfunction. 2. Left atrium is mildly enlarged. 3. Aortic valve is thickened. There is mild aortic stenosis with peak gradient of 21.4 mmHg. ECHOCARDIOGRAM REPORT [id number] NYLA RODRIGUEZ 4. Mitral valve is normal. 5. Tricuspid valve is normal. RVSP of 35 mmHg. 6. Right ventricle is normal. 7. The right atrium is normal. IMPRESSION: The patient has evwd-iy-bathzqef aortic stenosis, otherwise normal echocardiogram. TRANSINT:[id number] Voice Confirmation ID: [id number] DOCUMENT ID: [id number] ALVIN RASCON MD CC: [id number] DICTATION DATE: 01/07/20928 UTILITIES OPERATOR: 01/07/20 1231 ADM IN [facility] [address] [place] [address]
[~2020-01-05 08:52] MED LIST changes: +FUROSEMIDE40 MG PO; +LASIX20 MG PO; +POTASSIUM CHLO10 ME1 PO
[2020-01-05 09:30] LABS: HEMATOCRIT 36.8 % (42.0-54.0); HEMOGLOBIN 12.1 g/dL (13.5-17.5); LYMPHOCYTES 25.1 % (15-50); MCH 29.6 pg (26.0-34.0); MCHC 32.9 g/dL (31.0-37.0); MEAN PLATELET VOLUME 11.1 fL (7.4-10.4); PLATELET COUNT 183 10x3/uL (130-400); RBC 4.09 10x6/uL (4.20-6.10); RDW 14.7 % (11.5-14.5); WBC 6.9 10x3/uL (4.8-10.8)
[2020-01-05 09:47] LABS: CALC OSMOLALITY 280 mosm/kg (275-300); CALCIUM 8.9 mg/dL (8.5-10.1); CARBON DIOXIDE 32.4 mmol/L (21.0-32.0); CHLORIDE - SERUM 102 mmol/L (98-107); CREATININE - SERUM 0.5 mg/dL (0.6-1.3); GLUCOSE 98 mg/dL (74-106); POTASSIUM - SERUM 4.2 mmol/L (3.5-5.1); SODIUM 140 mmol/L (136-145); UREA NITROGEN 17 mg/dL (7-18); eGFR NON AFRICAN AMERICAN > 90 mL/min (90-120)
[2020-01-05 09:55] LABS: BACTERIA FEW /hpf (NEGATIVE); BILIRUBIN NEGATIVE (NEGATIVE); EPITHELIAL CELLS 0-5 /hpf (0-5); GLUCOSE NEGATIVE (NEGATIVE); KETONE MODERATE mg/dL (NEGATIVE); NITRITE NEGATIVE (NEGATIVE); RED CELLS - URINE OCC /hpf (0-5); SPECIFIC GRAVITY 1.025 (1.005-1.020); UROBILINOGEN 4 mg/dL (NORMAL); WHITE CELLS - URINE OCC /hpf (NEGATIVE)
[2020-01-05 10:06] LABS: ALBUMIN 2.9 g/dL (3.4-5.0); ALKALINE PHOSPHATASE 87 U/L (30-120); ALT (SGPT) 22 U/L (10-68); APTT 35.5 SECONDS (22.8-39.4); BILIRUBIN - TOTAL 0.83 mg/dL (0.2-1.3); CKMB 2.6 U/L (0.0-3.6); CREATINE KINASE 85 UL (21-232); INR 1.08 (0.85-1.17); MAGNESIUM - SERUM 2.2 mg/dL (1.8-2.4); PROTEIN - SERUM 6.5 g/dL (6.4-8.2); TROPONIN-I < 0.017 ng/mL (0.000-0.060)
[2020-01-05 10:08] LABS: D-DIMER-QUANTITATIVE 3.17 ug/mLFEU (0.20-0.54)
[2020-01-05] MEDS ORDERED: NEURONTIN 300300 MG PO (12:41)
[2020-01-05] MEDS ORDERED: ENTRESTO 24 MG1 EACH PO (12:43)
[2020-01-05] MEDS ORDERED: LEXAPRO5 MG PO (12:44)
[2020-01-05] MEDS ORDERED: HYDROCODON-ACE1 EAC7 PO (12:44)
[2020-01-05] MEDS ORDERED: BETAPACE 120 M120 MG PO (12:45)
[2020-01-05 13:11] LABS: CKMB 2.7 U/L (0.0-3.6); CREATINE KINASE 68 UL (21-232); TROPONIN-I < 0.017 ng/mL (0.000-0.060)
[2020-01-05] MEDS ORDERED: NUCYNTA ER100 MG PO (13:36)
[2020-01-05 21:40] LABS: CREATINE KINASE 77 UL (21-232); TROPONIN-I < 0.017 ng/mL (0.000-0.060)
[2020-01-05 21:45] LABS: CKMB 13.6 U/L (0.0-3.6)
--- NOTE | 2020-01-05 22:00 | NUR ---
SPOKE WITH RIVERA MAST APRN, ABOUT NPO STATUS AND ORDERS TO KEEP NPO STATUS.
[2020-01-06] VITALS (13 sets, daily range): BP systolic 94–142; BP diastolic 67–102; Ht 180.3 cm; Wt 108.5 kg
[2020-01-06 02:15] LABS: CKMB 3.2 U/L (0.0-3.6); CREATINE KINASE 74 UL (21-232); TROPONIN-I < 0.017 ng/mL (0.000-0.060)
[2020-01-06 06:43] LABS: BASOPHILS 0 % (0-2); EOSINOPHILS 0.7 % (0-7); HEMATOCRIT 35.1 % (42.0-54.0); HEMOGLOBIN 11.3 g/dL (13.5-17.5); IMMATURE GRANULOCYTES 2.1 % (0-5); MCH 29.7 pg (26.0-34.0); MCHC 32.2 g/dL (31.0-37.0); MEAN PLATELET VOLUME 10.7 fL (7.4-10.4); MONOCYTES 13.7 % (2-11); NEUTROPHILS 62.5 % (40-80); PLATELET COUNT 216 10x3/uL (130-400); RBC 3.81 10x6/uL (4.20-6.10); RDW 14.7 % (11.5-14.5); WBC 7.2 10x3/uL (4.8-10.8)
[2020-01-06 06:46] LABS: MCV 92.1 fL (80.0-100.0)
[2020-01-06 07:05] LABS: ALBUMIN 2.7 g/dL (3.4-5.0); ALKALINE PHOSPHATASE 81 U/L (30-120); ALT (SGPT) 20 U/L (10-68); BILIRUBIN - TOTAL 0.79 mg/dL (0.2-1.3); CALC OSMOLALITY 278 mosm/kg (275-300); CALCIUM 8.6 mg/dL (8.5-10.1); CARBON DIOXIDE 27.4 mmol/L (21.0-32.0); CHLORIDE - SERUM 105 mmol/L (98-107); CREATININE - SERUM 0.5 mg/dL (0.6-1.3); GLUCOSE 80 mg/dL (74-106); POTASSIUM - SERUM 3.7 mmol/L (3.5-5.1); PROTEIN - SERUM 6.5 g/dL (6.4-8.2); SODIUM 140 mmol/L (136-145); UREA NITROGEN 15 mg/dL (7-18); eGFR NON AFRICAN AMERICAN > 90 mL/min (90-120)
--- NOTE | 2020-01-06 09:00 | NUR ---
PT REFUSING TO BE TURNED AT THIS TIME,
--- NOTE | 2020-01-06 11:15 | NUR ---
PT C/O NAUSEA AT THIS TIME, ORDERED ZOFRAN GIVEN
--- NOTE | 2020-01-06 11:30 | NUR ---
PT REFUSING TO BE TURNED AT THIS TIME,
--- NOTE | 2020-01-06 13:30 | NUR ---
FAMILY AT BEDSIDE, UPDATE GIVEN
--- NOTE | 2020-01-06 14:02 | ST ---
PATIENT:NYLA RODRIGUEZ MEDICAL RECORD: [id number] SEX: M LOCATION:[facility] ORDER #: ADMISSION DATE: 01/06/20 AGE OF PATIENT: 79 REFERRING PHYSICIAN: INTERPRETING PHYSICIAN: ALVIN RASCON MD DATE OF SERVICE: 01/05/2020 PROCEDURE: Stress only nuclear stress test. PROCEDURE IN DETAIL: The patient was brought into the nuclear lab and placed in supine position on the nuclear table. The patient had Lexiscan stress test delivered per usual protocol without complications. The patient had only stress imaging performed. FINDINGS: Ejection fraction 69%. No wall motion abnormalities. SPECT imaging revealed no evidence of photopenia or ischemia. IMPRESSION: This is a negative stress only stress test. No evidence of significant ischemia demonstrated. TRANSINT:[id number] Voice Confirmation ID: [id number] DOCUMENT ID: [id number] ALVIN RASCON MD at 1402 CC: [id number] DICTATION DATE: 01/06/20 0658 SOCIAL SERVICES MANAGER: 01/06/20 0845 ADM IN [place] [address] [place] [address]
--- NOTE | 2020-01-06 20:07 | MORECARE ---
CASE MANAGEMENT DISCHARGE SUMMARY PATIENT: NYLA RODRIGUEZ UNIT: [id number] ADM DATE: 01/06/20 AGE: 79 : 39 SEX: M ROOM/BED: D.2306 AUTHOR: TR LAW PHYSICIAN: REFERRING PHYSICIAN: IVA LARSEN MD DATE OF SERVICE: 01/06/20 Discharge Plan Patient Name: NYLA RODRIGUEZ Facility: [facility]:[place] : 1940 Planned Disposition: Anticipated Discharge Date: Discharge Date: Expected LOS: Initial Reviewer: [email or web address] Initial Review Date: 01/05/2020 Generated: 01/06/20 9:06 pm Comments DCP- Discharge Planning Updated by [email or web address]: Adelaida Desai on 01/06/20 7:[address] CM received notice of transfer to [facility] for Neuro. Dr Daniels is requesting patient be transferred d/t not being able to perform testing needed. Dr. Daniels spoke with family and patient regarding transfer and they both agree. CM contacted [facility] transfer center [phone] fax [phone]. Patient Name: NYLA RODRIGUEZ Page 42303 at 2007 All edits/amendments must be made on the electronic document DICTATION DATE: 01/06/202005 EXTERNAL RELATIONS DIRECTOR: RYAN 01/06/20 2006 RPT#: [id number] DC DATE: STATUS: ADM IN [facility] [address] [place] [address] END OF REPORT
--- NOTE | 2020-01-06 20:13 | MORECARE ---
CASE MANAGEMENT DISCHARGE SUMMARY PATIENT: NYLA RODRIGUEZ UNIT: [id number] ADM DATE: 01/06/20 AGE: 79 : 39 SEX: M ROOM/BED: D.2306 AUTHOR: TR LAW PHYSICIAN: REFERRING PHYSICIAN: IVA LARSEN MD DATE OF SERVICE: 01/06/20 Discharge Plan Patient Name: NYLA RODRIGUEZ [facility] [facility] 1940 Planned Disposition: Anticipated Discharge Date: Discharge Date: Expected LOS: Initial Reviewer: [email or web address] Initial Review Date: 01/05/2020 Generated: 01/06/20 9:13 pm Comments DCP- Discharge Planning Updated by [email or web address]: Adelaida Desai on 01/06/20 7:[address] CM received notice of transfer to [facility] for Neuro. Dr Daniels is requesting patient be transferred d/t not being able to perform testing needed. Dr. Daniels spoke with family and patient regarding transfer and they both agree. CM contacted [facility] [phone] fax [phone]. External Providers External Provider: OTHER-OTHER Next Contact Date: Service Request Date: Service Type: Resolution: Reviewer: Comments: Last DP export: 01/06/20 7:07 p Patient Name: NYLA RODRIGUEZ Page [id number] at 2013 All edits/amendments must be made on the electronic document DICTATION DATE: 01/06/202012 SPEEDER TENDER: RYAN 01/06/20 2013 RPT#: [id number] DC DATE: STATUS: ADM IN [facility] [address] [place] [address] END OF REPORT
--- NOTE | 2020-01-06 20:26 | MORECARE ---
CASE MANAGEMENT DISCHARGE SUMMARY PATIENT: NYLA RODRIGUEZ UNIT: [id number] ADM DATE: 01/06/20 AGE: 79 : 39 SEX: M ROOM/BED: D.2306 AUTHOR: TR LAW PHYSICIAN: REFERRING PHYSICIAN: IVA LARSEN MD DATE OF SERVICE: 01/06/20 Discharge Plan Patient Name: NYLA RODRIGUEZ [facility] [facility] 1940 Planned Disposition: Anticipated Discharge Date: Discharge Date: Expected LOS: Initial Reviewer: [email or web address] Initial Review Date: 01/05/2020 Generated: 01/06/20 9:25 pm Comments DCP- Discharge Planning Updated by [email or web address]: Adelaida Desai on 01/06/20 7:[address] CM received notice of transfer to [facility] for Neuro. Dr Daniels is requesting patient be transferred d/t not being able to perform testing needed. Dr. Daniels spoke with family and patient regarding transfer and they both agree. KADEN contacted clearing house clerk Suha and advised her of request for transfer. She notified Admin zoning assistant.CM contacted [facility] [phone] fax [phone]. KADEN spoke with Nicol at transfer center and she also spoke with Dr. Daniels. KADEN explained that patient is in ICU but he is an overflow patient and doesn't require an ICU bed at their facility. CM faxed facesheet per request. CM has given unit number to call and transfer form has been signed per Dr. Daniels. Last DP export: 01/06/20 7:13 p Patient Name: NYLA RODRIGUEZ Page 14192 at 2025 All edits/amendments must be made on the electronic document DICTATION DATE: 01/06/202024 PEER EDUCATOR: RYAN 01/06/202024 RPT#: [id number] DC DATE: STATUS: ADM IN [facility] [address] [place] [address] END OF REPORT
--- NOTE | 2020-01-06 20:51 | MORECARE ---
CASE MANAGEMENT DISCHARGE SUMMARY PATIENT: NYLA RODRIGUEZ UNIT: [id number] ADM DATE: 01/06/20 AGE: 79 : 39 SEX: M ROOM/BED: D.2306 AUTHOR: TR LAW PHYSICIAN: REFERRING PHYSICIAN: IVA LARSEN MD DATE OF SERVICE: 01/06/20 Discharge Plan Patient Name: NYLA RODRIGUEZ [facility] [facility] 1940 Planned Disposition: Anticipated Discharge Date: Discharge Date: Expected LOS: Initial Reviewer: [email or web address] Initial Review Date: 01/05/2020 Generated: 01/06/20 9:50 pm Comments DCP- Discharge Planning Updated by [email or web address]: Adelaida Desai on 01/06/20 7:[address] CM received notice of transfer to [facility] for Neuro. Dr Daniels is requesting patient be transferred d/t not being able to perform testing needed. Dr. Daniels spoke with family and patient regarding transfer and they both agree. KADEN contacted warehouse shipper Suha and advised her of request for transfer. She notified Admin new home sales consultant.CM contacted [facility] [phone] fax [phone]. KADEN spoke with Nicol at transfer center and she also spoke with Dr. Daniels. KADEN explained that patient is in ICU but he is an overflow patient and doesn't require an ICU bed at their facility. CM faxed facesheet per request. CM has given unit number to call and transfer form has been signed per Dr. Daniels. Appended by Adelaida Desai on 01/06/2020 20:46 CDT: CM copied chart and request a disc of images for transfer Last DP export: 01/06/20 7:26 p Patient Name: NYLA RODRIGUEZ Page [id number] at 2050 All edits/amendments must be made on the electronic document DICTATION DATE: 01/06/202049 ARCHITECTURE CONSULTANT: RYAN 01/06/202049 RPT#: [id number] DC DATE: STATUS: ADM IN [facility] [address] [place] [address] END OF REPORT
--- NOTE | 2020-01-06 21:44 | NUR ---
DR. LARSEN AT BEDSIDE SAYS OK TO GIVE SOFT FOOD TOLERATED. PUDDING GIVEN WITH MEDICATIONS. TOLERATING WELL. WILL CONTINUE TO OBSERVE.
--- NOTE | 2020-01-06 22:55 | NUR ---
REPORT GIVEN TO GIO AT [facility], [place], [facility], PT TO BED ADMITTED TO 403.
--- NOTE | 2020-01-06 23:45 | NUR ---
ATTEMPTED TO OBTAIN PT SIGNATURE AND PT REFUSED. CALL AND MESSAGE LEFT ON VOICEMAIL.
--- NOTE | 2020-01-07 02:50 | NUR ---
SPOKE WITH , SHE SAID THAT HER SON IS THE WHO SPOKE WITH DR AND HE WOULD BE HERE IN AM TO GO WITH PT TO [facility]. WOULD NOT GIVE VERBAL CONCENT FOR PATIENT.
[2020-01-07 03:00] VITALS: BP 101/59
--- NOTE | 2020-01-07 06:59 | NUR ---
BATH GIVEN. LINENS CHANGED. UPDATE GIVEN TO CHEONDOISM NURSE
[2020-01-07 07:30] VITALS: BP 101/73
--- NOTE | 2020-01-07 09:45 | NUR ---
AM MEDS GIVEN WITH APPLESAUCE. PT REFUSED POTASSIUM AND LASIX AT THIS TIME. STATES THAT HE DOESN'T WANT TO TAKE THE LASIX SINCE HE IS GOING TO BE TRANSFERRED TO A DIFFERENT FACILITY.
--- NOTE | 2020-01-07 10:02 | NUR ---
PT AGREED TO BE TRANSFERRED TO [facility]. TRANSFERRED CENTER CALLED. THEY WILL CHECK ON BED AVAILABILITY AND CALL BACK.
--- NOTE | 2020-01-07 10:45 | NUR ---
SPOKE WITH TOMY AT [facility] IN [place]. WILL NOTIFY ME WHEN ROOM IS AVAILABLE FOR TRANSFER.
--- NOTE | 2020-01-07 10:56 | NUR ---
ATE ABOUT 20% OF MEAL. VOIDED 200ML OF CONCENTRATED TOSHA URINE. RESTING COMFORTABLY. NO FURTHER NEEDS AT THIS TIME.
[2020-01-07 11:00] VITALS: BP 93/54
--- NOTE | 2020-01-07 11:24 | NUR ---
ACCIDENTALLY PULLED IV OUT WHEN USING URINAL. CLEAN GOWN PROVIDED.
--- NOTE | 2020-01-07 11:35 | NUR ---
REPOSITIONED FOR COMFORT.
--- NOTE | 2020-01-07 13:01 | NUR ---
SPOKE WITH TOMY AT [facility] IN [place]. ROOM NOT READY. WILL CALL WHEN READY.
--- NOTE | 2020-01-07 13:17 | NUR ---
REPORT CALLED TO IRINEO AT [facility] [phone] PT WILL BE TRANFERRED TO ROOM 911.
--- NOTE | 2020-01-07 13:51 | NUR ---
AMBULANCE CALLED AT THIS TIME. WILL BE HERE IN ABOUT 30MIN.
--- NOTE | 2020-01-07 15:32 | NUR ---
AMBULANCE PICKED PT UP AT THIS TIME. [facility] IN [place] NOTIFIED THAT PT WAS ON HIS WAY. PERSONAL BELONGINGS SENT WITH PT'S SON.
--- NOTE | 2020-01-08 22:49 | MORECARE ---
CASE MANAGEMENT DISCHARGE SUMMARY PATIENT: NYLA RODRIGUEZ UNIT: [id number] ADM DATE: 01/06/20 AGE: 79 : 38 SEX: M ROOM/BED: D.2306 AUTHOR: TR LAW PHYSICIAN: REFERRING PHYSICIAN: IAV LARSEN MD DATE OF SERVICE: 01/08/20 Discharge Plan Patient Name: NYLA RODRIGUEZ [facility] : 1940 Planned Disposition: Anticipated Discharge Date: Discharge Date: 01/07/2020 Expected LOS: Initial Reviewer: [email or web address] Initial Review Date: 01/05/2020 Generated: 01/08/20 11:48 pm Comments DCP- Discharge Planning Updated by [email or web address]: Adelaida Desai on 01/06/20 7:[address] CM received notice of transfer to [facility] for Neuro. Dr Daniels is requesting patient be transferred d/t not being able to perform testing needed. Dr. Daniels spoke with family and patient regarding transfer and they both agree. KADEN contacted warehouse hand Suha and advised her of request for transfer. She notified Admin production laborer.CM contacted [facility] [phone] fax [phone]. KADEN spoke with Nicol at transfer center and she also spoke with Dr. Daniels. KADEN explained that patient is in ICU but he is an overflow patient and doesn't require an ICU bed at their facility. CM faxed facesheet per request. CM has given unit number to call and transfer form has been signed per Dr. Daniels. Appended by Adelaida Desai on 01/06/2020 20:46 CDT: CM copied chart and request a disc of images for transfer Last DP export: 01/06/20 7:51 p Patient Name: NYLA RODRIGUEZ Page [id number] at 2249 All edits/amendments must be made on the electronic document DICTATION DATE: 01/08/202247 COGNOS BI DEVELOPER: RYAN 01/08/202247 RPT#: [id number] DC DATE:01/07/20 STATUS: DIS IN [facility] [address] [place] [address] END OF REPORT
== END 2020-01-07 15:35 | disposition short-term general hospital (02) | DRG 313 ==
LOC: D.ER 08:52 → D.ICU 12:10 → OBSVTIME 12:10 → D.ICU 01-06 11:00
PROVIDERS: Family Medicine; Internal Medicine Gastroenterology; ADMIT Legal Medicine; ATTEND Legal Medicine
PROC: 0DB78ZX Excision of Stomach, Pylorus, Via Natural or Artificial Opening Endoscopic, Diagnostic (ICD-10-PCS; principal; 2020-01-06 16:17)
DX: R07.9 Chest pain, unspecified (principal); D64.9 Anemia, unspecified; K21.9 Gastro-esophageal reflux disease without esophagitis; I10 Essential (primary) hypertension; I48.91 Unspecified atrial fibrillation; R53.1 Weakness; R06.00 Dyspnea, unspecified; R47.1 Dysarthria and anarthria; G70.9 Myoneural disorder, unspecified; R13.12 Dysphagia, oropharyngeal phase; E86.0 Dehydration